=== PATIENT | male | born 1950 | race Caucasian/White ===

== ENCOUNTER 2020-08-14 12:40 | Observation (INO) | payer MEDICARE, SELFPAY ==
[2020-08-14] VITALS (10 sets, daily range): BP systolic 129–147; BP diastolic 73–81; PULSE 60–68; RESP 16–22; TEMP 35.8–37; O2SAT 96–100; BMI 28.0; BMI 28.1
--- NOTE | 2020-08-14 13:00 | EKG12_ITS ---
Test Reason : Blood Pressure : / mmHG Vent. Rate : 062 BPM Atrial Rate : 062 BPM P-R Int : 214 ms QRS Dur : 144 ms QT Int : 484 ms P-R-T Axes : 050 093 080 degrees QTc Int : 491 ms Sinus rhythm with 1st degree A-V block with Premature supraventricular complexes Right bundle branch block Abnormal ECG Confirmed by MARILYN DICK, JACKY ([id number]), photographic editor JEFERSON GRAVES ([id number]) on 08/16/2020 1:40:31 PM Referred By: MIGUEL Confirmed By:JACKY SANDERS MD
--- NOTE | 2020-08-14 13:00 | CT_ITS ---
STUDY: CT BRAIN WITHOUT CONTRAST REASON FOR EXAM: Male, 70 years old. LEFT SIDED WEAKNESS. FALLS 2 DAYS AGO. DRAGGING LT FOOT. RADIATION DOSAGE (If Supplied By Facility): CTDIvol = ( 44.99 ) mGy, DLP = ( 779.24 ) mGycm TECHNIQUE: Transaxial CT imaging of the brain was performed without administration of intravenous contrast material. Individualized dose optimization techniques were used for this CT. COMPARISON: No relevant priors. FINDINGS: Normal soft tissue structures. Normal calvarium. There is mild cerebral atrophy with widening of the extra-axial spaces and ventricular dilatation. There are areas of decreased attenuation within the white matter tracts of the supratentorial brain, consistent with microvascular disease changes. Normal basal ganglia and thalami. Normal brainstem. Normal cerebellum. There is no intracranial hemorrhage. There are no findings of an acute ischemic infarction. Atherosclerotic calcification of the cavernous portions of the internal carotid arteries bilaterally. Normal visualized paranasal sinuses. CT/Brain/Head without Contrast IMPRESSION: Chronic involutional changes of the brain. Electronically Signed: Tyshawn Husain, at 13:59 EDT , Service support ,
--- NOTE | 2020-08-14 13:01 | CT_ITS ---
STUDY: CT CERVICAL SPINE WITHOUT CONTRAST REASON FOR EXAM: Male, 70 years old. LEFT SIDED WEAKNESS. FALLS 2 DAYS AGO. DRAGGING LT FOOT. RADIATION DOSAGE (If Supplied By Facility): CTDIvol = ( 21.18 ) mGy, DLP = ( 456.12 ) mGycm TECHNIQUE: High resolution transaxial imaging was performed without contrast material. Sagittal and coronal images were reconstructed. Individualized dose optimization techniques were used for this CT. COMPARISON: None FINDINGS: Normal craniovertebral junction. There are degenerative changes of the anterior atlantoaxial articulation. Normal odontoid process. There is straightening of the normal cervical lordosis. Normal vertebral bodies and posterior osseous elements. C2-3: Minimal anterior listhesis of C2 on C3. Facet joint osteoarthritis and hypertrophy on the right side with a mild degree of right neural foraminal stenosis. C3-4: Minimal anterior listhesis of C3 3 on C4. Facet joint osteoarthritis and hypertrophy worse on the right side. Uncovertebral arthrosis. Bilateral no foraminal stenosis. C4-5: Minimal anterior listhesis of C4 on C5. Facet joint osteoarthritis and hypertrophy more prominent on the right side. Moderate degree of right neural foraminal stenosis. C5-6: Mild degree of disc space narrowing and spondylosis. Mild degree of bilateral neural foraminal stenosis. C6-7: Marked in degree of disc space narrowing and spondylosis. Uncovertebral arthrosis. Moderate degree of left neural foraminal stenosis. Atherosclerotic calcification of the carotid bifurcations. CT/Spine Cervical without Contras IMPRESSION: Multilevel degenerative changes, as described above. Electronically Signed: Tyshawn Husain, at 14:03 EDT , Service support ,
--- NOTE | 2020-08-14 13:02 | ED.VISSUMM ---
- ER Visit Summary Date of Service: 08/14/20 Chief Complaint: Left arm and leg weakness History of Present Illness: The patient is a 70 M who has left arm and leg weakness. 2 days ago he fell at home. He was bending over and lost his balance and hit his head. He went to [facility] had a negative CAT scan at that time. He was discharged to home. Yesterday family noticed that he was dragging his left leg. He was having some arm weakness on the left-hand side. He denies any headache. He is having no neck or back pain. He takes a full aspirin a day but no other blood thinning medications. He has no history of stroke however he does have a history of hypertension, diabetes and high cholesterol. Physical Examination: Vital signs reviewed. HEENT exam shows a left periorbital hematoma otherwise unremarkable. Heart is regular rate and rhythm without murmurs. Lungs are clear to auscultation. Abdomen is soft and nontender. Extremities reveal no edema. Skin exam normal. Neurologic exam shows left arm and leg weakness. His NIH stroke scale equals 2. He scores one-point for arm weakness and one-point for leg weakness Test Results: EKG labs and imaging studies are all unremarkable and showed chronic issues. Emergency Department Course and Treatment: The patient's NIH was 2. He is outside of the window for TPA. His imaging studies were unremarkable. My concern is that he may be having some sort of ischemic etiology for his left-sided weakness. There is no new evidence of any bleeding. Patient was discussed with the hospitalist for admission. Treatment Plan: [] Disposition: Discharge Impression: Left-sided weakness This note was generated with [employer] dictation software. It may contain incorrect words, spelling, and punctuation that were not noted in review of the chart prior to signing ED Disposition - Plan for ED Patient: Referrals: Ryan George MD [Primary Care Provider] -
--- NOTE | 2020-08-14 13:08 | NURSING ---
NO OLD EKGS
[2020-08-14 13:32] LABS: Absolute Lymphocyte Count 1.72 X10^3/uL (0.83-4.51); Absolute Neutrophil Count 4.4 X10^3/uL (2.0-7.7); Basophil# 0.06 X10^3/uL; Basophil% 0.9 % (0-1); Eosinophil# 0.24 X10^3/uL; Eosinophils% 3.4 % (0-5); Hematocrit 40.7 % (40-54); Hemoglobin 13.8 g/dL (13.0-16.5); Lymphocyte # 1.72 X10^3/ul (4.0); Lymphocyte % 24.5 % (19-41); Mean Corp Hgb Conc 33.9 g/dL (32-36); Mean Corpuscular Hgb 31.8 pg (27.0-32.0); Mean Corpuscular Volume 93.8 fL (80-94); Mean Platelet Vol. 9.5 fl (6.2-12.0); Monocyte# 0.56 X10^3/uL; NRBC Flagged by Analyzer 0 % (0-5); Neutrophil % 62.8 % (47-70); Platelet Count 198 K/mm3 (150-450); RBC Distribution Width CV 14.1 % (11.6-14.6); RBC Distribution Width SD 47.2 fl (35.1-43.9); Red Blood Count 4.34 M/mm3 (4.6-6.2)
[2020-08-14 13:44] LABS: Prothrombin Time (Protime)PT. 12.6 SECONDS (11.7-14.9)
[2020-08-14 13:45] LABS: Partial Thromboplast Time 34.1 Seconds (24.1-36.2)
[2020-08-14 13:47] LABS: Anion Gap 7 (5-15); BUN 12 mg/dL (7-18); BUN/Creat Ratio 10.7 RATIO (10-20); Calcium,Total 9.6 mg/dL (8.5-10.1); Chloride 105 mmol/L (98-107); Creatinine, Serum 1.12 mg/dL (0.70-1.30); EST Glomerular Filtration Rate 69 mL/min (>60); Est Glom Filt Rate - Afr Amer 83 mL/min (>60); Estimated Creatinine Clearance 55.38 ml/min; Glucose 175 mg/dL (74-106); Sodium Level 140 mmol/L (136-145)
--- NOTE | 2020-08-14 14:19 | NURSING ---
DR SHELBY FOR DR RIVERA
--- NOTE | 2020-08-14 14:26 | NURSING ---
OBS LT SIDE WEAKNESS ASHELFAH
--- NOTE | 2020-08-14 14:29 | ED.RN ---
Verbal order to discontinue NIH received from Dr Saleh.
--- NOTE | 2020-08-14 14:35 | HP.PCM_ITS ---
Problem List (1) Weakness of left side of body Status: Acute (2) Type 2 diabetes mellitus Status: Chronic (3) Abdominal aortic aneurysm (AAA) Status: Chronic Comment: Status post repair on June, at [facility]. (4) Coronary artery disease Status: Chronic Comment: Status post stents x4. (5) Hypertension Status: Chronic (6) Hyperlipidemia Status: Chronic History of Present Illness Date of Admission: 08/14/20 Chief Complaint: Left-sided weakness. The patient is a 70 year old M with past medical history as mentioned above presented to the emergency room because of left-sided body weakness. On Friday which was 2 days ago, patient had mechanical fall and hit his head on the right side, went to another hospital where he had CT scan brain that showed no acute findings and he was discharged home. According to his daughter, yesterday patient started dragging his left leg when he walks. The patient mentioned that since yesterday morning, he notes that his left leg and arm are weak and he has been having difficulties ambulating although he continues to ambulate. He reported associated intermittent numbness and tingling but it is on the right side of his face and right arm. He denied blurred vision or slurred speech. He denied headache, dizziness or lightheadedness. He had a history of abdominal aortic aneurysm that was repaired last month and he has be en on aspirin and statins and he has no complaints. He has history of type 2 diabetes mellitus which seemed to be under control with glipizide and Metformin. And history of hypertension and he has been on lisinopril and his blood pressure usually under control. In the emergency department, his NIH stroke scale was 2. He was not a candidate for TPA because of time window. His vital signs are stable. His routine blood work was unremarkable. CT scan brain showed no acute infarct or hemorrhage. CT scan cervical spine done because of mechanical fall showed no acute fractures or dislocations. He is being admitted for left-sided body weakness likely due to acute stroke versus TIA for evaluation and treatment. Past Medical History Past Medical History (Chronic Problems): Chronic Problems Type 2 diabetes mellitus (Chronic) Abdominal aortic aneurysm (AAA) (Chronic) Status post repair on June, at [facility]. Coronary artery disease (Chronic) Status post stents x4. Hypertension (Chronic) Hyperlipidemia (Chronic) Allergies No Known Allergies Allergy (Verified 08/14/20 12:43) Home Medications: Ambulatory Orders Medication Instructions Recorded Aspirin 325 mg PO DAILY@199908/14/20 Atorvastatin Calcium [Lipitor] 20 mg PO QHS 08/14/20 Fenofibrate [Tricor] 145 mg PO DAILY 08/14/20 Glipizide [Glipizide ER] 20 mg PO BID 08/14/20 Lisinopril [Zestril] 2.5 mg PO DAILY 08/14/20 Metformin HCl 1,000 mg PO BID 08/14/20 Surgical History: - - AAA repair. Psychiatric History: No pertinent psych hx Lives: Spouse/ Significant Other Smoking Status: Current every day smoker Tobacco Use: Cigarettes Alcohol: None Drugs: None - *Family History Maternal History Items: No pertinent history Paternal History Items: No pertinent history Review of Systems Constitutional: Denies: Anorexia, Chills, Fever, Fatigue Eyes: Denies: Blurred vision, Double vision, Drainage, Redness HEENT: Denies: Difficulty Hearing, Ear Pain, Eye Pain, Nasal Congestion, Sore Throat Cardiovascular: Denies: Chest Pain, Chest Pressure, Heaviness, Light Headedness, Palpitations, Syncope Respiratory: Denies: Cough, Pleuritic Pain, Shortness of Breath, Sputum production, Wheezing Gastrointestinal: Denies: Abdominal Pain, Constipation, Diarrhea, Nausea, Vomiting Genitourinary: Denies: Dysuria, Frequency, Hematuria Musculoskeletal: Denies: Arm Pain, Back Pain, Foot Pain Skin: Denies: Dryness, Rash Neurological: Reports: Focal weakness, Numbness, Tingling. Denies: Balance problems, Double vision, Change in Speech, Slurred speech, Confusion, Headaches Psychiatric: Denies: Anxiety, Depression Endocrine: Denies: Change in Body Habitus, Polydipsia, Polyuria VTE Information - Inpt Only VTE Present on Admission: No VTE Mechan Device Prophylaxis: None VTE Pharm Prophylaxis ordered?: Yes Patient Problems: Active and Suspected Problems Weakness of left side of body (Acute) - Physical Exam Vitals/I&O's: Vital Signs Temp Pulse Resp BP Pulse Ox 98.4 F 60 22 H 142/81 H 98 08/14/20 14:28 08/14/20 14:28 08/14/20 14:28 08/14/20 14:28 08/14/20 14:28 Oxygen Delivery Method Room Air Weight: 174 lb 2.643 oz Body Mass Index (BMI) 28.0 General: Alert, Oriented x3, Cooperative, No apparent distress HEENT: Atraumatic, PERRLA, EOMI, Normocephalic Oral: Moist Mucosa, No Gingival or Mucosal Lesions/ Ulcerations Neck: Supple, No JVD, Negative Carotid Bruits, Trachea Midline, Thyroid Normal Size and Texture Lungs: Clear to auscultation, Normal air movement, No rhonchi, No wheeze, No rales Cardiovascular: Regular rate, Regular Rhythm, Normal S1, Normal S2, No murmurs, No Ectopic Activity, PMI Normal Abdomen: Bowel Sounds Present, Soft, Non Tender, Non-Distended, No Hepato- splenomegaly Extremities: No clubbing, No cyanosis, No edema Skin: No rashes, No breakdown Lymphatic: No Cervical, Supraclavicular, or Inguinal Adenopathy Neurological: Cranial nerves II-XII grossly intact, - - Minimal drift on the left upper and lower extremities, otherwise power is normal. Psych/Mental Status: Normal Affect, Appropriate, Alert and oriented to time, place, person, mood and affect Laboratory Results 08/14/20 13:20: WBC 7.0, RBC 4.34 L, Hgb 13.8, Hct 40.7, MCV 93.8, MCH 31.8, MCHC 33.9, RDW Std Deviation 47.2 H, RDW Coeff of Snehal 14.1, Plt Count 198, MPV 9.5, Immature Gran % (Auto) 0.400, Neut % (Auto) 62.8, Lymph % (Auto) 24.5, [place] % (Auto) 8.0, Eos % (Auto) 3.4, Baso % (Auto) 0.9, Absolute Neuts (auto) 4.4, Absolute Lymphs (auto) 1.72, Nucleated RBC % 0 08/14/20 13:20: PT 12.6, INR 1.0, APTT 34.1 08/14/20 13:20: Sodium 140, Potassium 4.0, Chloride 105, Carbon Dioxide 28.0, Anion Gap 7, BUN 12, Creatinine 1.12, Estim Creat Clear Calc 55.38, Est GFR (MDRD) Af Amer 83, Est GFR (MDRD) Non-Af 69, BUN/Creatinine Ratio 10.7, Glucose 175 H, Calcium 9.6, Troponin I < 0.015 Clinical Impression(s) from Imaging Studies Brain CT 08/14/20 13:00 IMPRESSION: Chronic involutional changes of the brain. Electronically Signed: Tyshawn Husain, at 13:59 EDT , Service support , Cervical Spine CT 08/14/20 13:01 IMPRESSION: Multilevel degenerative changes, as described above. Electronically Signed: Tyshawn Husain, at 14:03 EDT , Service support , Current Medications Labetalol HCl (Labetalol (Prefilled) 20 Mg/4 Ml) 20 mg IV X1 PRN PRN Reason: BLOOD PRESSURE Assessment/Plan All Active Problems Weakness of left side of body (Acute) This is a 70 years old male patient presented to the emergency room because of left-sided body weakness and is being admitted for evaluation and treatment. #1 left-sided body weakness: Concerning for acute stroke versus TIA. In context of recent AAA repair as well as recent head trauma due to mechanical fall. CT scan brain reviewed, no acute findings. CT cervical spine was unremarkable. Patient states that he had extensive preoperative work-up for the AAA repair surgery which was done last month and this work-up including 2D echocardiogram, carotid Doppler, CTAs at [facility]. Currently, his vital signs are stable. EKG revealed normal sinus rhythm, first-degree AV block, RBBB, no acute findings. Plan: Admit to PCU for observation, cardiac monitoring, NIH stroke scale, continue aspirin, start high intensity Lipitor, MRI brain, obtain carotid Doppler, 2D echocardiogram, CTA report from [facility], gentle IV fluids for hydration, Tylenol as needed, Zofran as needed, PT OT evaluation and treatment. We may consider repeating 2D echocardiogram and CTA head and neck if the MRI positive for stroke. #2 abdominal aortic aneurysm: Status post repair on July 17, 2020. Patient denied any abdominal pain. Vital signs are stable. Plan to continue aspirin and statins, obtain records from [facility]. #3 type 2 diabetes mellitus: ADA diet, Accu-Cheks, insulin sliding scale, check hemoglobin A1c, continue glipizide, hold Metformin. #4 hypertension: Blood pressure stable, continue lisinopril. #5 hyperlipidemia: Start Lipitor 80 mg p.o. nightly, continue TriCor. #6 coronary artery disease: Status post stents. Patient having chest pain, EKG reviewed, unremarkable. Troponin was negative. Continue aspirin, statins, TriCor and lisinopril. #7 DVT prophylaxis: Subcu Lovenox. This note was generated with [employer] dictation software. It may contain incorrect words, spelling, and punctuation that were not noted in checking the note before signing. OBSV E&M: 48310 Initial observation care L3
--- NOTE | 2020-08-14 15:31 | MRI_ITS ---
HISTORY: Left sided weakness (arm and leg), dragging foot. Fall 2 days ago, black left eye TECHNIQUE: Multiplanar and multisequence MR images of the brain were obtained without contrast. IV Contrast dosage and agent: None. COMPARISON: CT 08/14/2020 FINDINGS: Number of images including paperwork: 286 PARANASAL SINUSES AND MASTOID AIR CELLS: Clear. CALVARIUM: Intact. INTRACRANIAL HEMORRHAGE: No evidence of acute intracranial hemorrhage. BRAIN PARENCHYMA: No acute infarct. Multiple areas of white matter signal abnormality. Considering the patient's age, chronic microangiopathic changes are most likely with the differential diagnosis including vasculitis, chronic migraines, and demyelinating disease. Normal sella turcica, pituitary gland, infundibular stalk, and optic chiasm. The internal auditory canals are patent. No mass effect or midline shift. CSF SPACES: Appropriate for age. No hydrocephalus. Patent basal cisterns. VASCULAR SYSTEM: Normal flow voids in the major intracranial circulation. ORBITS: Both globes, extraocular muscles, optic nerves and retrobulbar fat appear unremarkable. SOFT TISSUES: Unremarkable. MRI/Brain without Contrast IMPRESSION: No acute intracranial abnormality. Chronic white matter changes, most commonly chronic small vessel ischemic changes. at 2215 Reported and signed by: Collette Ruggiero MD Electronically Signed: Collette Ruggiero MD at 22:15 EDT Tel , Service support ,
[2020-08-14] MEDS: 0.9% Normal Saline 1,000 ML 75 ML IV (16:52)
[2020-08-14 16:59] LABS: Hemoglobin A1c 7.1 % (3.8-5.6)
[2020-08-14] MEDS: glipiZIDE 10 MG Tablet 20 MG PO (17:03)
[2020-08-14 17:15] LABS: Bedside Glucose 133 mg/dL (70-110)
[2020-08-14] MEDS: Aspirin 325 MG Tablet PO (20:52)
[2020-08-14] MEDS: Atorvastatin Calcium 80 MG Tablet PO (22:40)
[2020-08-14] MEDS: Insulin Lispro 100 UNIT/ML INSULN.PEN SC (22:45)
[2020-08-15 00:40] LABS: Bedside Glucose 184 mg/dL (70-110)
[2020-08-15 02:00] VITALS: BP 147/63; PULSE 59; RESP 16; TEMP 36.6; O2SAT 95
[2020-08-15 07:21] LABS: Bedside Glucose 144 mg/dL (70-110)
[2020-08-15 07:34] VITALS: PULSE 56
[2020-08-15 07:35] VITALS: O2SAT 96
[2020-08-15 07:48] VITALS: BP 149/72; PULSE 56; RESP 17; TEMP 36.4; O2SAT 93
[2020-08-15] MEDS: glipiZIDE 10 MG Tablet 20 MG PO (07:52)
[2020-08-15] MEDS: Enoxaparin 40 MG/0.4 ML Syringe SC (07:52)
[2020-08-15] MEDS: Lisinopril 2.5 MG Tablet PO (07:52)
[2020-08-15] MEDS: Fenofibrate 145 MG Tablet PO (07:53)
--- NOTE | 2020-08-15 09:13 | DCINST_ITS ---
- Discharge Diagnoses Current Active Problems: Current Active and Chronic Problems Weakness of left side of body (Acute) Type 2 diabetes mellitus (Chronic) Abdominal aortic aneurysm (AAA) (Chronic) Status post repair on June, at [facility]. Coronary artery disease (Chronic) Status post stents x4. Hypertension (Chronic) Hyperlipidemia (Chronic) You will use the following diet at home:: Calorie/Carbohydrate Controlled (specify 1200, 1400, etc) - 1800 Your food should be the consistency of: Regular Your liquids should be the consistency of: Regular/Thin Allergies/Adverse Reactions: Allergies No Known Allergies Allergy (Verified 08/14/20 12:43) Medications to take at Discharge Aspirin 325 mg PO DAILY@199908/14/20 Atorvastatin Calcium [Lipitor] 20 mg PO QHS 08/14/20 Fenofibrate [Tricor] 145 mg PO DAILY 08/14/20 Glipizide [Glipizide ER] 20 mg PO BID 08/14/20 Lisinopril [Zestril] 2.5 mg PO DAILY 08/14/20 Metformin HCl 1,000 mg PO BID 08/14/20 Acetaminophen [Tylenol Tablet] 650 mg PO Q6H PRN PRN tablet 08/15/20 Orders to be completed after discharge: Physical Therapy Evaluation Location: None Selected Primary Care Physician: Ryan George MD [Primary Care Provider] - Within 2 Weeks Test Results: Test results from this visit will be discussed in further detail at your follow- up appointment, if applicable. Please Follow Up With: Zhang Gonzalez DO - orthopaedics When: 2-3 months Proposed Discharge Date: 08/15/20
--- NOTE | 2020-08-15 09:23 | PCM.DC.SUM ---
Discharge Date and Diagnosis - Problem List Patient Problems: Active and Suspected Problems Weakness of left side of body (Acute) Date of Admission: 08/14/20 Date of Discharge: 08/15/20 - Primary Discharge Diagnosis Acute Problems: Active Problems Weakness of left side of body (Acute) Left rotator cuff tear - Secondary Discharge Diagnosis Chronic Problems: Chronic Problems Type 2 diabetes mellitus (Chronic) Abdominal aortic aneurysm (AAA) (Chronic) Status post repair on June, at [facility]. Coronary artery disease (Chronic) Status post stents x4. Hypertension (Chronic) Hyperlipidemia (Chronic) Hospital Course and Treatment Imaging Results: Clinical Impression(s) from Imaging Studies Brain CT 08/14/20 13:00 IMPRESSION: Chronic involutional changes of the brain. Electronically Signed: Tyshawn Husain, at 13:59 EDT , Service support , Cervical Spine CT 08/14/20 13:01 IMPRESSION: Multilevel degenerative changes, as described above. Electronically Signed: Tyshawn Husain, at 14:03 EDT , Service support , Brain MRI 08/14/20 15:31 IMPRESSION: No acute intracranial abnormality. Chronic white matter changes, most commonly chronic small vessel ischemic changes. at 2215 Reported and signed by: Collette Ruggiero MD Electronically Signed: Collette Ruggiero MD at 22:15 EDT Tel , Service support , Operations: None Procedures: None Summary of Care Provided: The patient is a 70 year old M presents with left-sided weakness. Patient underwent MRI of his brain and a CT of his neck that were unremarkable. Patient stated that in 2013 he had an issue to the labrum of his left shoulder. Patient unable to lift it to 90 degrees. On exam, patient was unable to lift his left upper extremity to horizontal. Sensation was intact and was able to move his hand well. Patient has a left-sided rotator cuff tear which has been known since 2013 though he has noted some worsening weakness over the past few weeks. No evidence of any stroke to suggest that would be the cause of this. Patient advised to follow-up with physical therapy. Patient had seen orthopedics about 6 years ago in [place] but has not seen anyone since. Recommend patient do physical therapy and then follow-up with orthopedics for evaluation for possible rotator cuff surgery. Patient states that he had rotator cuff surgery on his right in the past. Patient is interested in following up with physical therapy. He denies any home-going needs. Reassurance provided. [] Patient Problems: Active and Suspected Problems Weakness of left side of body (Acute) - Physical Exam Vitals/I&O's: Vital Signs Temp Pulse Resp BP Pulse Ox 36.4 C L 56 L 17 149/72 H 93 08/15/20 07:48 08/15/20 07:48 08/15/20 07:48 08/15/20 07:48 08/15/20 07:48 Oxygen Delivery Method Room Air Weight: 78.925 kg Body Mass Index (BMI) 28.0 Intake and Output for Last 24 Hours 08/13/20 08/14/20 08/15/20 23:59 23:59 23:59 Intake Total 240 / 240 1000 / 1000 Output Total 600 / 600 Balance -360 / -360 1000 / 1000 General: Alert, No apparent distress HEENT: Atraumatic, Normocephalic Oral: Moist Mucosa, No Gingival or Mucosal Lesions/ Ulcerations Neck: No Nodes, Thyroid Normal Size and Texture Lungs: Clear to auscultation, Normal air movement, No rhonchi, No wheeze Cardiovascular: Regular rate, Regular Rhythm, Normal S1, Normal S2 Abdomen: Bowel Sounds Present, Soft, Non Tender, Non-Distended Extremities: - - Tender palpation in the left shoulder. Patient unable to lift his left arm to horizontal. Neurological: - - Strength 5-5 in the lower extremities. Strength limited in the assessment of the left upper extremity due to pain and inability to lift his arm up. Laboratory Results 08/14/20 13:20: WBC 7.0, RBC 4.34 L, Hgb 13.8, Hct 40.7, MCV 93.8, MCH 31.8, MCHC 33.9, RDW Std Deviation 47.2 H, RDW Coeff of Snehal 14.1, Plt Count 198, MPV 9.5, Immature Gran % (Auto) 0.400, Neut % (Auto) 62.8, Lymph % (Auto) 24.5, Lane % (Auto) 8.0, Eos % (Auto) 3.4, Baso % (Auto) 0.9, Absolute Neuts (auto) 4.4, Absolute Lymphs (auto) 1.72, Nucleated RBC % 0 08/14/20 13:20: PT 12.6, INR 1.0, APTT 34.1 08/14/20 13:20: Sodium 140, Potassium 4.0, Chloride 105, Carbon Dioxide 28.0, Anion Gap 7, BUN 12, Creatinine 1.12, Estim Creat Clear Calc 55.38, Est GFR (MDRD) Af Amer 83, Est GFR (MDRD) Non-Af 69, BUN/Creatinine Ratio 10.7, Glucose 175 H, Calcium 9.6, Troponin I < 0.015 08/14/20 13:20: Hemoglobin A1c 7.1 H 08/14/20 16:53: POC Glucose 133 H 08/14/20 22:42: POC Glucose 184 H 08/15/20 06:44: POC Glucose 144 H Current Medications Acetaminophen (Acetaminophen 325 Mg Tablet) 650 mg PO Q6H PRN PRN PRN Reason: Pain Score 1-10/Temp > 100.7 F Aspirin (Aspirin 325 Mg Tablet) 325 mg PO DAILY@1999 [facility] Last Admin: 08/14/20 20:52 Dose: 325 mg Documented by: Atorvastatin Calcium (Atorvastatin Calcium 80 Mg Tablet) 80 mg PO QHS [facility] Last Admin: 08/14/20 22:40 Dose: 80 mg Documented by: Enoxaparin Sodium (Enoxaparin 40 Mg/0.4 Ml Syringe) 40 mg SC DAILY [facility] Last Admin: 08/15/20 07:52 Dose: 40 mg Documented by: Fenofibrate (Fenofibrate 145 Mg Tablet) 145 mg PO DAILY [facility] Last Admin: 08/15/20 07:53 Dose: 145 mg Documented by: Glipizide (Glipizide 10 Mg Tablet) 20 mg PO BIDCM [facility] Last Admin: 08/15/20 07:52 Dose: 20 mg Documented by: Insulin Human Lispro (Insulin Lispro 100 Unit/Ml Insuln.Pen) 0 unit SC ACHS TIN; Protocol Last Admin: 08/15/20 06:45 Dose: Not Given Documented by: Lisinopril (Lisinopril 2.5 Mg Tablet) 2.5 mg PO DAILY [facility] Last Admin: 08/15/20 07:52 Dose: 2.5 mg Documented by: Ondansetron HCl (Ondansetron 4 Mg/2 Ml Vial) 4 mg IV Q8H PRN PRN PRN Reason: NAUSEA/VOMITING Sodium Chloride (0.9% Saline Lock 10 Ml Syringe) 10 - 40 ml IV UD PRN PRN Reason: SALINE FLUSH Zolpidem Tartrate (Zolpidem Tartrate 5 Mg Tablet) 5 mg PO QHS PRN PRN PRN Reason: INSOMNIA Discharge Diet: 1800 Calorie Control Diet Home Medications: Medications to take at Discharge Aspirin 325 mg PO DAILY@199908/14/20 Atorvastatin Calcium [Lipitor] 20 mg PO QHS 08/14/20 Fenofibrate [Tricor] 145 mg PO DAILY 08/14/20 Glipizide [Glipizide ER] 20 mg PO BID 08/14/20 Lisinopril [Zestril] 2.5 mg PO DAILY 08/14/20 Metformin HCl 1,000 mg PO BID 08/14/20 Acetaminophen [Tylenol Tablet] 650 mg PO Q6H PRN PRN tablet 08/15/20 Other Amb Orders: Physical Therapy Evaluation Location: None Selected Primary Care Physician: Ryan George MD [Primary Care Provider] - Within 2 Weeks Please Follow Up With: Zhang Gonzalez DO - orthopaedics When: 2-3 months Disposition: Home Minutes spent on discharge:: 32 Patient Condition:: Good Medical Necessity - Tobacco Use Smoking Status: Current every day smoker Tobacco Use: Cigarettes Meaningful Use Info Meaningful Use Diagnoses (Choose all that apply): None applicable OBSV E&M: 20617 Observation care discharge
--- NOTE | 2020-08-15 09:26 | CASEMGMT ---
Pt to be sent home with script for OP therapy for left rotator cuff tear which have been known since 2014 and pt states worsening of sx's. Gary GUY CM
[2020-08-15 11:31] VITALS: BP 148/58; PULSE 66; RESP 18; TEMP 36.5; O2SAT 97
== END 2020-08-15 09:22 | disposition home or self-care (01) ==
LOC: ED 13:16 → PCU 14:39
PROVIDERS: Admitting Provider Hospitalist; Emergency Provider Emergency Medicine; PCP Internal Medicine
DX: R53.1 Weakness (principal); I10 Essential (primary) hypertension; E11.9 Type 2 diabetes mellitus without complications; I25.10 Atherosclerotic heart disease of native coronary artery without angina pectoris; E78.5 Hyperlipidemia, unspecified; F17.210 Nicotine dependence, cigarettes, uncomplicated; M75.102 Unspecified rotator cuff tear or rupture of left shoulder, not specified as traumatic; Z79.84 Long term (current) use of oral hypoglycemic drugs; Z79.82 Long term (current) use of aspirin; Z79.899 Other long term (current) drug therapy; Z86.79 Personal history of other diseases of the circulatory system; R29.702 NIHSS score 2
CPT/HCPCS: 70450; 70551; 72125; 80048; 82962; 83036; 84484; 85025; 85610; 85730; 93005; 94762; 99218; 99285; 99406; J7030; A4216; G0378